=== PATIENT | female | born 1980 | race Caucasian/White ===

== ENCOUNTER 2019-08-17 22:38 | Emergency (ER) | payer MEDICAID ==
[~2019-08-17] VITALS: Ht 165.1 cm; Wt 107.0 kg
[2019-08-17 22:42] VITALS: BP 161/90
[2019-08-17] MEDS: ALBUTEROL SULFATE/IPRATROPIU 3 ML SOL IH ONE (23:10)
[2019-08-17] MEDS: predniSONE 20 MG TAB PO ONE (23:10)
[2019-08-17] MEDS: AZITHROMYCIN 250 MG TAB PO ONE (23:11)
[2019-08-17 23:33] VITALS: BP 161/90
== END 2019-08-17 23:32 | disposition home or self-care (01) ==
LOC: MED 22:38
DX: J44.1 Chronic obstructive pulmonary disease with (acute) exacerbation (principal); M54.9 Dorsalgia, unspecified; F17.200 Nicotine dependence, unspecified, uncomplicated
CPT/HCPCS: 99283; J7512; J7620

== ENCOUNTER 2019-11-11 09:42 | Emergency (ER) | payer SELFPAY ==
[~2019-11-11] VITALS: Ht 165.1 cm; Wt 104.3 kg
--- NOTE | 2019-11-11 09:53 | NUR ---
PT AMBULATED TO BED 02.
[2019-11-11 09:58] VITALS: BP 129/98
--- NOTE | 2019-11-11 10:04 | NUR ---
Dr. Cavanaugh is evaluating the patient at bedside.
[2019-11-11] MEDS ORDERED: cefTRIAXone 1,000 MG in LIDOCAINE MPF 1% 2.1 ML IM ONE (10:10)
[2019-11-11] MEDS ORDERED: traMADol 50 MG TAB PO ONE (10:10)
[2019-11-11] MEDS ORDERED: hydrOXYzine HCL 25 MG TAB PO ONE (10:10)
[2019-11-11] MEDS ORDERED: KETOROLAC 60 MG/2 ML VIAL IM ONE (10:10)
--- NOTE | 2019-11-11 10:25 | NUR ---
NOTIFIED THAT PATIENT WAS UNABLE TO VOID, SAMPLE WAS NOT ENOUGH TO SEND TO LAB. APPROVED ADMIN OF ANTIBX WITHOUT FURTHER URINE TESTING.
[2019-11-11] MEDS ORDERED: cefTRIAXone 1,000 MG VIAL ONE (10:28)
[2019-11-11] MEDS ORDERED: LIDOCAINE MPF 1% 5 ML ONE (10:29)
[2019-11-11] MEDS ORDERED: ALBUTEROL SULFATE/IPRATROPIU 3 ML SOL IH ONE (10:30)
[2019-11-11] MEDS ORDERED: DEXAMETHASONE 10 MG/ML VIAL IM ONE (10:30)
--- NOTE | 2019-11-11 10:50 | NUR ---
Breathing treatment administered by respiratory therapist at bedside.
--- NOTE | 2019-11-11 11:01 | NUR ---
PATIENT WENT TO XRAY
--- NOTE | 2019-11-11 11:01 | NUR ---
PER COLLECTED INFLUENZA SWAB
--- NOTE | 2019-11-11 12:53 | NUR ---
Patient discharged with v/s stable. Written and verbal after care instructions given and explained. Patient alert, oriented and verbalized understanding of instructions. Ambulatory with steady gait. All questions addressed prior to discharge. ID band removed. Patient advised to follow up with PMD. Rx of PROMETHAZINE/MOTRIN/LEVQUIN given. Patient educated on indication of medication including possible reaction and side effects. Opportunity to ask questions provided and answered.
[2019-11-11 12:54] VITALS: BP 122/76
== END 2019-11-11 12:55 | disposition home or self-care (01) ==
LOC: MED 09:42
DX: J44.1 Chronic obstructive pulmonary disease with (acute) exacerbation (principal); J11.1 Influenza due to unidentified influenza virus with other respiratory manifestations; N30.90 Cystitis, unspecified without hematuria
CPT/HCPCS: 71046; 81002; 81025; 87804; 94640; 96372; 99284; J0696; J1100; J1885; J2001; J7620

== ENCOUNTER 2020-01-19 00:40 | Emergency (ER) | payer MEDICAID ==
[~2020-01-19] VITALS: Ht 165.1 cm; Wt 115.2 kg
[2020-01-19 00:47] VITALS: BP 132/93
--- NOTE | 2020-01-19 00:56 | NUR ---
PT AMBULATED TO BED
--- NOTE | 2020-01-19 00:58 | NUR ---
PT 39 Y/O FEMALE BIB SELF FOR C/O L KNEE PAIN S/P FALL. PT NOTED WITH NON PITTING AROUND PATELLA. BURISING NOTED AROUND PATELLA. PT STATES PAIN IS 7/10 , SHARP, AND CONTINOUS. PT STATES," THE PAIN WASNT THAT BAD WHEN I FEEL YESTERDAY BUT I HAD TO GO TO WORK TODAY AND THE PAIN GOT WORSE." PT AAO X4. PT DENIES HITTING HEAD DURING FALL. PERRL. RESPIRATIONS ARE EVEN AND UNLABORED. DENIES COUGH. AFEBILE. DENIES N/V/D. PT ABLE TO AMBULATE WITH STEADY GAIT. BED LOCKED AND IN LOWEST POSITION. VSS. MEDHX: NONE ALLERGIES: NKA.
[2020-01-19] MEDS ORDERED: KETOROLAC 60 MG/2 ML VIAL IM ONE (01:00)
--- NOTE | 2020-01-19 01:01 | NUR ---
Dr. Neumann examining patient.
--- NOTE | 2020-01-19 01:10 | NUR ---
PT AMBULATED TO RESTROOM WITH STEADY GAIT.
[2020-01-19 01:23] VITALS: BP 132/93
--- NOTE | 2020-01-19 01:23 | NUR ---
Patient discharged with v/s stable. Written and verbal after care instructions given and explained. Patient alert, oriented and verbalized understanding of instructions. Ambulatory with steady gait. All questions addressed prior to discharge. ID band removed. Patient advised to follow up with PMD. Rx of IBUPROFEN, NORCO given. Patient educated on indication of medication including possible reaction and side effects. Opportunity to ask questions provided and answered.
== END 2020-01-19 01:23 | disposition home or self-care (01) ==
LOC: MED 00:40
DX: S80.02XA Contusion of left knee, initial encounter (principal); J45.909 Unspecified asthma, uncomplicated; F17.200 Nicotine dependence, unspecified, uncomplicated; Z98.890 Other specified postprocedural states; W19.XXXA Unspecified fall, initial encounter; Y93.89 Activity, other specified; Y92.89 Other specified places as the place of occurrence of the external cause; Y99.8 Other external cause status
CPT/HCPCS: 96372; 99283; J1885

== ENCOUNTER 2020-03-14 10:51 | Emergency (ER) | payer MEDICAID, SELFPAY ==
[~2020-03-14] VITALS: Ht 165.1 cm; Wt 115.2 kg
[2020-03-14 10:52] VITALS: BP 120/94
--- NOTE | 2020-03-14 10:55 | NUR ---
PT PLACED ON ISOLATION PRECAUTIONS IN BED 9. PT ASSESSED BY ME IN FULL PPE: N95 MASK, GOWN, HAIR COVER, EYE VOGEL.
[2020-03-14] MEDS ORDERED: ALBUTEROL SULFATE/IPRATROPIU 3 ML SOL IH ONE (11:00)
--- NOTE | 2020-03-14 11:00 | NUR ---
C/O COUGH WITH SMALL AMOUNT OF HEMOPTYSIS THIS MORNING. PT DENIES FEVER/N/V/D. PT STATES SHE HAS A HX OF COPD AND USED A PROAIR INHALER WELL A NEBULIZER AT HOME BUT IT HAS NOT BEEN PROVIDING RELIEF. PT STATES SHE HAS HAD INCREASED SOB OVER THE LAST 2 WEEKS. EXPIRATORY WHEEZING THROUGHOUT, O2 SAT 94% RA. PT BREATHING IS UNLABORED, NO ACCESORY MUSCLE USE NOTED. BED IN LOW POSITION, SIDE RAIL UP X1.
--- NOTE | 2020-03-14 11:02 | NUR ---
DR. OSCAR EVALUATING PT AT BEDSIDE
--- NOTE | 2020-03-14 11:15 | NUR ---
MARII FROM LAB AT BEDSIDE
--- NOTE | 2020-03-14 11:19 | NUR ---
RT SUSANNE MURPHY) AT BEDSIDE ADMINISTERING BREATHING TX.
[2020-03-14] MEDS ORDERED: ALBUTEROL 0.083% 2.5 MG/3 ML NEBU INH ONE (11:30)
[2020-03-14 11:34] LABS: BASOPHILS # (AUTO) 0.1 K/uL (0.00-0.22); BASOPHILS % (AUTO) 1.1 % (0.0-2.0); EOSINOPHILS # (AUTO) 0.3 K/uL (0-0.4); EOSINOPHILS % (AUTO) 4.1 % (0.0-4.0); HEMATOCRIT 42.3 % (36-48); HEMOGLOBIN 14.2 g/dL (12.0-16.0); LYMPHOCYTES # (AUTO) 1.4 K/uL (2.5-16.5); LYMPHOCYTES % (AUTO) 19.4 % (20.5-51.1); MEAN CORPUSCULAR HEMOGLOBIN 31 pg (27-31); MEAN CORPUSCULAR HGB CONC 34 g/dL (33-37); MEAN CORPUSCULAR VOLUME 92.9 fL (80-94); MONOCYTES # (AUTO) 0.4 K/uL (0.8-1.0); MONOCYTES % (AUTO) 5.8 % (1.7-9.3); NEUTROPHILS # (AUTO) 5.1 K/uL (1.8-7.7); NEUTROPHILS % (AUTO) 69.6 % (42.2-75.2); PLATELET COUNT (AUTO) 214 K/uL (140-450); RED BLOOD CELL COUNT(AUTO) 4.56 MIL/uL (4.20-5.40); RED CELL DISTRIBUTION WIDTH 13.6 % (11.6-13.7); WHITE BLOOD COUNT (AUTO) 7.3 K/uL (4.8-10.8)
[2020-03-14] MEDS ORDERED: IPRATROPIUM 0.02% 0.5 MG/2.5 ML NEBU INH ONE (11:35)
[2020-03-14] MEDS ORDERED: ONDANSETRON 4 MG ODT PO ONE (11:35)
[2020-03-14] MEDS ORDERED: methylPREDNISolone SS 125 MG/2 ML VIAL IM ONE (11:35)
[2020-03-14 11:56] LABS: ANION GAP 10.1 (8-16); CARBON DIOXIDE 30.1 mmol/L (21-32); CREATININE 0.9 mg/dL (0.6-1.3); POTASSIUM 4.2 mmol/L (3.5-5.1)
[2020-03-14 12:09] LABS: ALBUMIN 3.5 g/dL (3.4-5.0); TOTAL BILIRUBIN 0.3 mg/dL (0.0-1.0)
--- NOTE | 2020-03-14 12:30 | NUR ---
Pt sitting in bed, no new needs at this time
[2020-03-14 12:59] VITALS: BP 114/90
--- NOTE | 2020-03-14 12:59 | NUR ---
Patient discharged with v/s stable. Written and verbal after care instructions given and explained. Patient alert, oriented and verbalized understanding of instructions. Carried with steady gait. All questions addressed prior to discharge. ID band removed. Patient advised to follow up with PMD. Rx of levaquin,prednisone, & promethazine given. Patient educated on indication of medication including possible reaction and side effects. Opportunity to ask questions provided and answered.
== END 2020-03-14 12:59 | disposition home or self-care (01) ==
LOC: EEVIPCON 10:51 → MED 10:51
DX: J44.1 Chronic obstructive pulmonary disease with (acute) exacerbation (principal); F17.210 Nicotine dependence, cigarettes, uncomplicated
CPT/HCPCS: 36415; 71045; 80053; 85025; 94640; 96372; 99285; J2930; J7613; J7644; Q0092; Q0162

== ENCOUNTER 2020-06-10 09:07 | Emergency (ER) | payer MEDICAID, SELFPAY ==
[~2020-06-10] VITALS: Ht 165.1 cm; Wt 117.9 kg
[2020-06-10 09:09] VITALS: BP_SYST 14; BP_SYST 140; BP_DIAS 98
--- NOTE | 2020-06-10 09:27 | NUR ---
B [id number] SWAB COLLECTED
[2020-06-10 09:49] VITALS: BP 140/98
--- NOTE | 2020-06-10 09:49 | NUR ---
Patient discharged with v/s stable. Written and verbal after care instructions given and explained. Patient alert, oriented and verbalized understanding of instructions. Ambulatory with steady gait. All questions addressed prior to discharge. ID band removed. Patient advised to follow up with PMD. Rx of NORCO/MOTRIN given. Patient educated on indication of medication including possible reaction and side effects. Opportunity to ask questions provided and answered.
== END 2020-06-10 09:49 | disposition home or self-care (01) ==
LOC: MED 09:07
DX: R51 Headache (principal); F17.210 Nicotine dependence, cigarettes, uncomplicated; J45.909 Unspecified asthma, uncomplicated; J44.9 Chronic obstructive pulmonary disease, unspecified; Z20.828 Contact with and (suspected) exposure to other viral communicable diseases; Z98.890 Other specified postprocedural states
CPT/HCPCS: 99283; U0003

== ENCOUNTER 2020-07-30 22:58 | Emergency (ER) | payer SELFPAY ==
[~2020-07-30] VITALS: Ht 165.1 cm; Wt 118.8 kg
[2020-07-30 23:15] VITALS: BP 159/104
--- NOTE | 2020-07-30 23:42 | NUR ---
40 Y/O FEMALE C/O SOB. NEBULIZER NOT HELPING AT HOME. 05/31 LEFT KNEE PAIN FROM A PAST INJURY. LUNGS SOUNDS WHEEZING HEARD, L UPPER LOBE. ABD SOFT NON TENDER. SKIN WARM AND DRY. MED HX: COPD, ASTHMA RX: ALBUTEROL, NEBULIZER NKA
--- NOTE | 2020-07-30 23:46 | NUR ---
ERMD AT BEDSIDE EVALUATING PT
[2020-07-30] MEDS ORDERED: ALBUTEROL 0.083% 2.5 MG/3 ML NEBU INH ONE (23:50)
[2020-07-30] MEDS ORDERED: IPRATROPIUM 0.02% 0.5 MG/2.5 ML NEBU INH ONE (23:50)
[2020-07-30] MEDS ORDERED: methylPREDNISolone SS 125 MG/2 ML VIAL IVP ONE (23:50)
--- NOTE | 2020-07-31 00:07 | NUR ---
RT AT BEDSIDE
[2020-07-31 00:23] LABS: BASOPHILS % (AUTO) 0.5 % (0.0-2.0); EOSINOPHILS # (AUTO) 0.3 K/uL (0-0.4); EOSINOPHILS % (AUTO) 4.1 % (0.0-4.0); HEMATOCRIT 42.3 % (36-48); HEMOGLOBIN 14.1 g/dL (12.0-16.0); LYMPHOCYTES # (AUTO) 1.9 K/uL (2.5-16.5); LYMPHOCYTES % (AUTO) 26.6 % (20.5-51.1); MEAN CORPUSCULAR HEMOGLOBIN 31 pg (27-31); MEAN CORPUSCULAR HGB CONC 33 g/dL (33-37); MEAN CORPUSCULAR VOLUME 94.4 fL (80-94); MONOCYTES # (AUTO) 0.6 K/uL (0.8-1.0); MONOCYTES % (AUTO) 7.8 % (1.7-9.3); NEUTROPHILS # (AUTO) 4.3 K/uL (1.8-7.7); PLATELET COUNT (AUTO) 220 K/uL (140-450); RED BLOOD CELL COUNT(AUTO) 4.49 MIL/uL (4.20-5.40); RED CELL DISTRIBUTION WIDTH 14.1 % (11.6-13.7); WHITE BLOOD COUNT (AUTO) 7.1 K/uL (4.8-10.8)
[2020-07-31 00:26] LABS: ALBUMIN 3.9 g/dL (3.4-5.0); ANION GAP 11.2 (8-16); CARBON DIOXIDE 27.8 mmol/L (21-32); CREATININE 0.9 mg/dL (0.6-1.3); TOTAL BILIRUBIN 0.2 mg/dL (0.0-1.0)
[2020-07-31] MEDS ORDERED: KETOROLAC 15 MG/ML VIAL IVP ONE ×2 (01:55→02:35)
[2020-07-31] MEDS ORDERED: KETOROLAC 15 MG/ML VIAL ONE (01:59)
[2020-07-31 02:45] VITALS: BP 159/104
--- NOTE | 2020-07-31 02:45 | NUR ---
Patient discharged with v/s stable. Written and verbal after care instructions given and explained. Patient alert, oriented and verbalized understanding of instructions. Ambulatory with steady gait. All questions addressed prior to discharge. ID band removed. IV Discontinued. Patient advised to follow up with PMD. Rx of PREDNISONE AND ATROVENT given. Patient educated on indication of medication including possible reaction and side effects. Opportunity to ask questions provided and answered.
== END 2020-07-31 02:45 | disposition home or self-care (01) ==
LOC: MED 22:58
DX: J44.1 Chronic obstructive pulmonary disease with (acute) exacerbation (principal); R06.02 Shortness of breath; R07.9 Chest pain, unspecified; F17.210 Nicotine dependence, cigarettes, uncomplicated; J45.909 Unspecified asthma, uncomplicated
CPT/HCPCS: 36415; 71045; 73560; 80053; 84484; 85025; 85379; 93005; 94640; 96374; 96375; 99285; J1885; J2930; J7613; J7644; Q0092

== ENCOUNTER 2020-08-05 20:48 | Emergency (ER) | payer SELFPAY ==
[2020-08-05] MEDS ORDERED: ONDANSETRON 4 MG ODT ONE (22:51)
--- NOTE | 2020-08-07 17:58 | NUR ---
RECEIVED CRITICAL LAB RESULT, POSITIVE COVID
[2020-08-07] MEDS ORDERED: KETOROLAC 30 MG/ML VIAL IM ONE (23:35)
[2020-08-07] MEDS ORDERED: HYDROcodone/APAP 5/325 MG 1 TAB TAB PO ONE (23:35)
== END 2020-08-06 01:40 | disposition home or self-care (01) ==
LOC: MED 20:48
DX: U07.1 COVID-19 (principal); J44.9 Chronic obstructive pulmonary disease, unspecified; I10 Essential (primary) hypertension
CPT/HCPCS: 99283; Q0162; U0003; J1885